=== PATIENT | female | born 1970 | race Caucasian/White ===

== ENCOUNTER 2016-12-10 05:37 | Inpatient (IN) | payer OTHER ==
[~2016-12-10] VITALS: Ht 165.1 cm; Wt 82.0 kg
[2016-12-10] VITALS (19 sets, daily range): BP systolic 105–146; BP diastolic 54–65; PULSE 65–91; RESP 10–18; O2SAT 95–100
[2016-12-10] MEDS: Lactated Ringer's 1,000 ML IV SCH ×3 (05:00→08:17)
[~2016-12-10 05:37] MED LIST: ACET325T51 PO; ALBU8.5H2 INHALATION; ALPR0.5T PO; CETI10CA PO; DOXY100C2 PO; EPINEPHrine 0.1 mg/mL 10 mL Syringe ONE; FLUT16SP NS; GUAI600T2 PO; IBUP200C PO; MIRENA IUD VAGINAL; MULT-1080 PO; SERT20OR6 PO; Sodium Bicarb (50 mEq) 8.4% 1 mEq/mL 50 mL Syringe ONE; benedryl PO
[2016-12-10] MEDS ORDERED: GENTAMICIN IRRIGATION ONE (06:00)
[2016-12-10] MEDS ORDERED: BACITRACIN IRRIGATION ONE (06:00)
[2016-12-10] MEDS ORDERED: CEFAZOLIN IRRIGATION ONE (06:00)
[2016-12-10] MEDS ORDERED: Heparin 5,000 Unit/mL Inj SUBQ ONE (06:00)
[2016-12-10] MEDS: CeFAZolin Inj 2 GM in IV Premix 1 EACH IV SCH ×2 (06:00→07:59)
[2016-12-10] MEDS ORDERED: [UNRECOGNIZED DRUG - OTHER] IRRIGATION ONE (06:00)
[2016-12-10] MEDS ORDERED: Neostigmine 1 mg/mL 10 mL Inj ONE ×2 (06:55→13:47)
[2016-12-10] MEDS ORDERED: Ondansetron 2 mg/mL 2 mL Inj ONE ×2 (06:55→13:47)
[2016-12-10] MEDS ORDERED: Glycopyrrolate 0.2 MG/ML 1mL Inj ONE ×2 (06:55→13:47)
[2016-12-10] MEDS ORDERED: Rocuronium 10 mg/mL 5 mL Inj ONE ×2 (06:55→13:47)
[2016-12-10] MEDS ORDERED: fentaNYL-PF 50 mCg/mL 2 mL Inj ONE (06:55)
[2016-12-10] MEDS ORDERED: Propofol 10,000 mCg/mL 20 mL Inj ONE ×2 (06:55→13:47)
[2016-12-10] MEDS ORDERED: HYDROmorphone 2 mg/mL Inj ONE (06:55)
[2016-12-10] MEDS ORDERED: Dexamethasone 4 mg/mL Inj ONE ×3 (06:55→13:47)
--- NOTE | 2016-12-10 07:28 | PCM.HPANE ---
Patient Data Surgeon Admitting Provider: Attending Provider:Erick Huang MD Primary Care Physician:Saskia Plaza MD Other Provider:Oanh Stinsoningham Anesthesia Reason for Visit Right Breast Cancer Ht/WT & BMI Height (Feet): 5 Height (Inches): 5.00 Weight (Kilograms): 76.3 Body Mass Index 28.00 Allergies Coded Allergies: No Known Allergies (Verified , 12/07/16) Past Anesthesia History Anesthesia History: Denies:: Abnormal Airway, Anesthesia Reactions, Difficult Intubation, Fam Anesthesia Reaction, Fam Malignant Hypertherm, Malignant Hyperthermia Diabetes History Hx Diabetes?: No MRSA MRSA: No Medications Home Meds Incl Beta Ramu: No Reported Medications [Mirena Iud] No Conflict Check Vaginal 20MCG/24H 12/07/16 Ibuprofen 200 Mg [id number] Mg PO QID PRN For Pain Ref 0 12/07/16 Sertraline HCl (Sertraline)20 Mg/1 Ml Oral.ojip210 Mg PO DAILY #1 BOTTLE Ref 0 12/07/16 [benedryl] No Conflict Check25 Mg PO QPM 12/07/16 Acetaminophen 325 Mg Nhwypj500 Mg PO Q4H PRN For Fever Ref 0 06/10/16 Cetirizine HCl (Zyrtec)10 Mg Fqflamq61 Mg PO HS #30 CAPSULE Ref 0 06/08/16 Alprazolam (Xanax)0.5 Mg Tablet0.5 Mg PO TID PRN For Anxiety Ref 0 used only when flying 06/08/16 Multivits,Ca,Minerals/Iron/FA (Women's Daily Formula Caplet)500-18-0.4 Tablet1 Each PO DAILY 06/08/16 Guaifenesin (Mucinex)600 Mg Tablet.er600 Mg PO DAILY PRN For Congestion 06/08/16 Fluticasone Propionate (Fluticasone Propionate Nasal)16 Gm [place].susp1 [place] NS DAILY #16 GM Ref 0 06/08/16 Doxycycline Hyclate 100 Mg Pifcape832 Mg PO PRN 06/08/16 Albuterol HFA (Proair HFA)8.5 Gm Hfa.aer.ad2 Puffs INHALATION Q4H PRN For Shortness of Breath #1 INHALER 06/08/16 Discontinued Reported Medications Baclofen 10 Mg Tablet5 Mg PO TID PRN For Pain Ref 0 5/4/17 History History of ENT Problems?: No HEENT History: Positive for:: Sinus Problem (SEASONAL ALLERGIES) TMJ (wears nightguard) Denies:: Abnormal Airway Cataracts Difficult Intubation Dysphagia Hearing Problem Denture Type: None Teeth Condition: Within Normal Limits Hx of Heart Problems?: No Cardiovascular History: Denies:: AICD Atrial Fibrillation Cardiac Surgery Chest Pain Congestive Heart Failure Edema Heart Murmur Hypertension Irregular Heartbeat Pacemaker Hx of Respiratory Problem?: Yes Respiratory History: Positive for:: Asthma Use of Inhalers / NEBS Denies:: COPD Emphysema Oxygen Administration Pneumonia Tuberculosis Use of C-PAP Machine Hx Neurologic Problems?: Yes Neurological History: Positive for:: Headaches Denies:: CVA Dementia Multiple Sclerosis Parkinson's Disease Seizures Hx of GI Problems?: Yes Other GI Pertinent History: S/P APPY Hx of Problems?: No Genitourinary History: Denies:: Kidney Stones Urinary Tract Infection Female Hx: Positive for:: Problems with Breasts? (S/P B/L BX'S/LUMPECTOMY RT BREAST CA=CURRENT PROBLEM) Denies:: Currently Skin History: Positive for:: History Skin Disorders? (ACNE) Denies:: Pressure Ulcers Hx Musculoskeletal Problems?: Yes Musculoskeletal History: Positive for:: Back Injury (C/OF NECK & SHOULDER PAIN CURRENTLY) Musculoskeletal Trauma (S/P RT SHOULDER RPR) Denies:: Joint Replacement Systemic Lupus Hx of Psycho/Social Problems?: No Psycho Social History: Denies:: Anxiety Hx Depression Hx Surgeries?: Yes (LT SALPING-OOPH,B/L BREAST BX/LUMPECTOMIES,RT SHOULDER RPR, APPY,L4-5 LAMI) Hx Any Other Health Problems?: Yes Other History: Positive for:: Cancer (RT BREAST CA) Denies:: Endocrine Disease Hospitalization Thyroid Disease History Blood Transfusions: Denies:: Blood Transfusions Hx Diabetes: No Hx Alcohol Use: No (QUIT 2010)Hx Substance Use: No Smoking Status: Former Smoker Have You Smoked inLast 12 mo: No Stop/Bang S-Snoring: Do You Snore Loudly: No T-Tired: feel tired, fatigued: Yes O-Obsered: Observed not breath: No P-Blood Pressure: treated: No B- Body Mass Index > 35 kg/m2: No A- Age over 50: No N- Neck Large Circumference: No G- Gender Male: No BUDDY Total Score: 1 BUDDY Risk Assessment: Low Risk, <3 Yes Risk Assessment Category Category 1A: Patient has history of documented sleep apnea, and HAS NOT received any narcotic, sedative or anesthesia administration during this stay. Category 1B: Patient has history of documented sleep apnea, and HAS received any narcotic , sedative or anesthesia administration during this stay Category 2: Patient has SUSPECTED Obstructive Sleep Apnea, and HAS received any narcotic , sedative or anesthesia administration during this stay. Category 3: Patient has SUSPECTED Obstructive Sleep Apnea and HAS NOT received narcotic, sedative or anesthesia administration during this stay. Category 4: Outpatient in Procedural Areas with known sleep apnea or who screen positive for High Risk via the STOP/BANG questionnaire. Exam Exam Vital Signs Vital Signs Date Time Temp Pulse Resp B/P Pulse Ox O2 Delivery O2 Flow Rate FiO2 12/10/16 06:06 36.5 72 18 105/60 98 Room Air General Appearance: Alert, Oriented X3, Cooperative, No Acute Distress HEENT/AIRWAY: MP 1 Lungs: Clear to Auscultation, Normal Air Movement Heart: Exam Unremarkable, Regular Rate/Rhythm, No Murmurs/Rubs/Gallops Meds/Labs/Diagnostics Admission Meds Current Medications Lactated Ringer's (Lr) 1,000 ml @ 120 mls/hr Q8H20M IV Last administered on t 05:43; Start 12/10/16 at 05:00; Stop 12/10/16 at 13:19 Plan Impression Patient chart reviewed, patient interviewed and anesthestic plan with risks, benefits, and alternatives discussed, and informed consent obtained. NPO per Anesth. Guidelines: Yes ASA Physical Status: ASA2 Mod Systemic Disease Anesthetic Plan: GA Bene/Risks/Altern/Consents: Yes HP Complete Prior to Induction: Yes Toney Dalal MD December 10, 2016 07:28
[2016-12-10] MEDS ORDERED: HEPARIN IV ONE (07:31)
[2016-12-10] MEDS ORDERED: SODIUM CHLORIDE 0.9% IV ONE (07:31)
[2016-12-10] MEDS ORDERED: SODIUM CHLORIDE 0.9% IRRIGATION ONE (07:50)
[2016-12-10] MEDS ORDERED: HEPARIN IRRIGATION ONE (07:50)
[2016-12-10] MEDS ORDERED: Lactated Ringer's 1,000 ML IV ONE ×5 (09:00→15:55)
--- NOTE | 2016-12-10 09:44 | DRSVH ---
PROCEDURE: NM SENTINEL NODE INJECTION ONLY, RIGHT BREAST RADIOPHARMACEUTICAL: 0.5 mCi Millipore filtered Tc-99m sulfur colloid. INDICATIONS: RIGHT BREAST CANCER. PROCEDURE: The indications, alternatives, benefits, risks, and complications of the procedure were explained to the patient. Written informed consent was obtained and placed in the chart. The area around the nip ple was prepped and draped in a sterile fashion. Tc-99m sulfur colloid was injected in the outer edg e of the areola in the right breast. No image was obtained. IMPRESSION: Administration of radiotracer into the right breast periareolar region for intra-operati ve sentinel lymph node localization. Dictated by: Mars Orosco M.D. on 12/10/2016 at 9:42 Approved by: Mars Orosco M.D. on 12/10/2016 at 9:43
[2016-12-10] MEDS ORDERED: Dexamethasone 4 mg/mL Inj IVPUSH PRN (09:50)
[2016-12-10] MEDS ORDERED: Ondansetron 2 mg/mL 2 mL Inj IVPUSH PRN (09:50)
[2016-12-10] MEDS ORDERED: Atropine 0.4 mg/mL Inj IVPUSH PRN (09:50)
[2016-12-10] MEDS ORDERED: MetoCLOpramide 5 mg/mL 2 mL Inj IVPUSH PRN ×2 (09:50→20:00)
[2016-12-10] MEDS ORDERED: Labetalol 5 mg/mL 4 mL Inj IV PRN (09:50)
[2016-12-10] MEDS ORDERED: Phenylephrine 10,000 mCg/mL Inj IVPUSH PRN (09:50)
[2016-12-10] MEDS ORDERED: Lactated Ringer's 1,000 ML IV SCH (09:50)
[2016-12-10] MEDS ORDERED: Lactated Ringer's 500 ML IV PRN (09:50)
[2016-12-10] MEDS ORDERED: EPHEDrine Sulfate 50 mg/mL Inj IVPUSH PRN (09:50)
[2016-12-10] MEDS ORDERED: Papaverine 30 mg/mL 2 mL Inj IV ONE (10:42)
--- NOTE | 2016-12-10 12:09 | PCM.SURGOP ---
Surgical Operative Report Date of Service: December 10, 2016 Pre Operative Diagnosis Right breast cancer, left breast deformity Post Operative Diagnosis Same Procedure: Bilateral skin sparing mastectomy, right axillary sentinel lymph node biopsy Surgeon and Batch Tester: Surgeon: Erick Huang MD Assistants: Osvaldo Abreu PA-C Indication for Procedure 46-year-old woman who has undergone 2 prior excisions for atypical ductal hyperplasia, and had a significant contour abnormality of the left medial breast inferiorly. She was then diagnosed with right breast invasive ductal carcinoma, ER/OH positive, HER-2 negative, with a 1 cm mass in the right breast 12:00 retroareolar region, 1 cm from the nipple. Because of her young age, 2 prior episodes of atypical ductal hyperplasia, and contour abnormality of the left breast, she desired to undergo bilateral mastectomy with immediate reconstruction. She was recommended to undergo abdominal tissue transfer. After discussion of risks and benefits, she agreed to proceed with bilateral skin sparing mastectomy and right axillary sentinel lymph node biopsy. Findings: There was a single right axillary sentinel lymph node, with an ex vivo gamma count of 512. The background count in the right axilla was 1. Procedure Details Preoperatively, the patient underwent right breast. All her injection for sentinel node identification. She was brought to the operating room where she underwent smooth induction of general endotracheal anesthesia. A Blakely catheter was placed. A left radial arterial catheter was placed. She was placed in the supine position with both arms out, and was prepped and draped in wide sterile fashion. A procedural pause was performed according to the SCOAP checklist, and all were found to be in agreement. Left skin sparing mastectomy was performed first. A circumareolar incision was made with a vertical inferior extension to the inframammary fold. Skin flaps were raised circumferentially. Circumferential dissection was carried out with electrocautery, elevating the skin and subcutaneous tissue off the underlying breast parenchyma. Margins of dissection were the left clavicle, the midline, the left inframammary crease, and the left anterior axillary line. Medially, there was a very large perforating vessel inferiorly which was initially partially controlled with hemoclips, and ultimately controlled with a 3-0 silk suture ligature. There were multiple other perforating vessels along the lateral border of the pectoralis muscle which were controlled with clips. There was significant scar tissue as well as some old clips in the region of her prior excision in the lower inner quadrant. The left breast was then elevated off the underlying chest wall, and pectoralis fascia was resected en bloc. The axillary tail was divided. Again, there were several large vessels in the axillary tail which were controlled with medium clips. The left breast was oriented with suture, and passed off the field for permanent pathology. Hemostasis was adequate. A moist sponge was placed in the mastectomy space. Right skin sparing mastectomy was performed next, through a similar circumareolar incision with a vertical inferior extension to the inframammary crease. Skin flaps were raised circumferentially. Using electrocautery, the skin and subcutaneous tissue was elevated off the underlying breast parenchyma. Margins of dissection were the right clavicle, the midline, the right inframammary crease, and the right anterior axillary line. Perforating vessels on this side were significantly smaller. There was a superior directional survey drafter which was controlled with medium hemoclips. Several lateral perforators were controlled with medium hemoclips. The right breast was then elevated off the underlying chest wall, and pectoralis fascia was resected en bloc. The right axillary tail was divided, and the right breast was oriented with suture, and passed off the field for permanent pathology. Right axillary sentinel lymph node biopsy was performed through the same incision. The axillary fascia was incised. Using the gamma probe as a guide, the area of maximum radiotracer activity was identified and dissected free from the surrounding tissues. There was a single lymph node which was partially transected inadvertently, that was dissected free. Ex vivo, the gamma count was 512. The background count in the right axilla was 1. That lymph node was sent for permanent pathology, labeled as right axillary sentinel lymph node. There is a small amount of residual subcutaneous tissue under the superior skin flap, so additional dissection was performed sharply with Metzenbaum scissors. The tissue was oriented with suture , and sent for permanent pathology labeled as right subcutaneous tissue. Hemostasis was adequate. A moist sponge was placed in the right mastectomy space. The remainder of the operation was performed by Dr. Lowell Anaya. Please see his dictated operative report regarding abdominal tissue harvest, transfer, and skin closure. At the end of the case all needle and sponge counts were correct 2. The patient was awakened from anesthesia without difficulty, and taken to the recovery room in satisfactory condition, having tolerated the procedure well. Complications There were no periprocedural complications identified. Surgical Specimen Removed: Yes Specimen sent to Pathology: Yes Surgical Specimen description: Left breast. Right breast. Right axillary sentinel lymph node. Right subcutaneous tissue. Anesthetic Plan: GA Grafts, Implants: None Output, Estimated Blood Loss: 100 Blood Administration during lynch: No Drains: EDD Drain #1, EDD Drain #2, EDD Drain #3, EDD Drain #4 Catheters: Urethral 2 Way Blakely copies to: Saskia Plaza MD; Kiko Valentine Joshua D MD December 10, 2016 12:09
[2016-12-10] MEDS ORDERED: Bupivacaine Liposome 1.3% 20 mL Inj ONE (12:54)
--- NOTE | 2016-12-10 17:48 | PCM.ANEP1 ---
Post Anesthesia PACU Phase 1 Assessment Anesthetic Administered: GA Level of Alertness: Sleepy, easy to arouse DEVINE's with Equal Strength: Yes Pain: No Nausea or Vomiting: No CV Function and Hydration: Yes Airway Device: Endotrachial Tube Oxygen Delivery: Simple Mask Lungs: Clear to Auscultation, Normal Air Movement Dermatome Level: Full Sensation PACU Phase 2 Assessment Complications: No Follow up Care: N/A Patient Instructions Provided: Yes Toney Dalal MD December 10, 2016 17:48
[2016-12-10] MEDS: fentaNYL-PF 50 mCg/mL 2 mL Inj IVPUSH PRN ×3 (17:53→18:20)
[2016-12-10] MEDS: HYDROmorphone 1 mg/mL Inj IVPUSH PRN ×3 (18:33→19:15)
[2016-12-10] MEDS ORDERED: Magnesium Hydroxide 10 mL Oral Concentration PO PRN (19:55)
[2016-12-10] MEDS ORDERED: diphenhydrAMINE 25 mg Capsule PO PRN (20:00)
[2016-12-10] MEDS ORDERED: Albuterol 2.5 mg/3 mL Inhalation Solution NEB PRN (20:15)
[2016-12-10] MEDS ORDERED: HYDROmorphone 1 mg/mL Inj IVPUSH PRN (20:20)
[2016-12-10] MEDS: HYDROmorphone PCA 0.2 mg/mL 30 mL Inj - Standard IV PRN (20:33)
[2016-12-10] MEDS: POTASSIUM CHLORIDE IV SCH (21:00)
[2016-12-10] MEDS: DEXTROSE 5% IV SCH (21:00)
[2016-12-10] MEDS: LACTATED RINGER S IV SCH (21:00)
[2016-12-11] VITALS (10 sets, daily range): BP systolic 88–110; BP diastolic 46–53; PULSE 76–88; RESP 11–25; O2SAT 96–99
[2016-12-11 03:14] LABS: Mean Corpuscular Hemoglobin 32.2 pg (27.0-35.0); Mean Corpuscular Volume 93.7 fL (81-100)
[2016-12-11] MEDS: LACTATED RINGER S IV SCH ×4 (03:47→23:50)
[2016-12-11] MEDS: POTASSIUM CHLORIDE IV SCH ×4 (03:47→23:50)
[2016-12-11] MEDS: DEXTROSE 5% IV SCH ×4 (03:47→23:50)
--- NOTE | 2016-12-11 06:12 | NUR ---
P) CCU Admit Pt. admitted to CCU last night at approx. 1920 from PACU, on 2L O2 via N/C, cardiac rhythm sinus with occasional PVC's, BP low, especially when dozing, generally with systolic in the 90's and diastolic i the 40's. Breath sounds decreased bilat. extent may be due to difficulty hearing through the binder, Pt. practicing coughing and deep breathing, given a pillow for splinting. Only c/o pain is in breasts, no abdominal pain except with moving about in bed, in semi-marshall position all night but self shifting weight on bottom. Dopplers in breast checked hourly along with appearance and skin tension and graft color, breasts remain soft, grafts flesh color and warm, good dopplered pulses bilat. Abdominal binder over ABD dressing, no bleeding on dressing, EDD's putting out a moderate amount of drainage 35-60ml. each over shift. Pt. drowsy and frequently dozing but wakes easily and is alert and oriented x3. I) Continue close monitoring. E) Resting quietly after performing her personal facial care independently.
[2016-12-11] MEDS: Heparin 5,000 Unit/mL Inj SUBQ SCH ×4 (08:16→23:49)
[2016-12-11] MEDS: Fluticasone 0.05% 15 Spray/2 Gm 16 Gm Nasal Spray NASAL SCH (08:16)
[2016-12-11] MEDS: CeFAZolin 1 Gm/50 mL D5W IV Premix IV SCH ×4 (08:17→23:50)
[2016-12-11] MEDS ORDERED: HYDROmorphone 0.5 mg/0.5 mL iSecure Syringe IVPUSH PRN (09:10)
[2016-12-11] MEDS: HYDROmorphone PCA 0.2 mg/mL 30 mL Inj - Standard IV PRN (15:41)
--- NOTE | 2016-12-11 15:43 | NUR ---
Social Work: Screen D: Per EMR review, pt is a 46 year old female admitted for Right Breast Cancer. Pt is [employer]. PCP is Saskia Plaza MD. NOK is pt's mother, Katie Pendleton. Advanced directives not completed at this time. Readmit score is low, 2/8. CONNIE SCRATCHER attempted to meet with patient at bedside to provide AD info and discuss discharge planning. The requested CONNIE SCRATCHER return at a later time. CONNIE SCRATCHER agreed. A: Pt who is from [place]. P: CONNIE SCRATCHER to return to provide AD info and complete discharge planning. GABE Smith
--- NOTE | 2016-12-11 18:45 | NUR ---
Activity- was helped up to a sitting and then standing position at the bedside. Patient tolerated the activity fairly well but after about 3min of standing stated that her legs were getting to be too wobbly and had to sit down. Patient asked that the Blakely cath not be removed as discussed with MD because she did not believe she can get up to a bedside commode well even with assist and did not want to use a bedpan- DM aware. Patient was encouraged to stand up at the bed side with assist again this afternoon and tolerated the activity total for about 10min. she was able to march in place but had to sit down once to rest. Blakely catheter and SUPERVISOR ROUGH END remained in placed- MD was made aware- patient to be reevaluated in am. Pain- well controlled with SUPERVISOR ROUGH END Dilaudid- patient did not required any boluses of pain med. Shift total for SUPERVISOR ROUGH END was 3.7mg. Grafts/surgical sites- Doppler checks q1h through the shift- no changes in sound quality was noted. Bilateral breast grafts/flaps remained unchanged in color, turgor, capillary refill and warmth and remained equal or close in those campsites to the surrounding tissues. No increase swelling or derange was noted. EDD drains 1 through 4 remained patent and with 30-60ml serum-sanguineous output per drain in 12h shift.
--- NOTE | 2016-12-11 21:06 | PROG NOTE ---
[address] [address] PROGRESS NOTE PATIENT: CHUCK HERRERA : 1970 MR#: [id number] ADMIT: 12/10/2016 JOB ID: [id number] DATE: 12/11/2016 PLASTIC SURGERY INPATIENT PROGRESS NOTE: Postoperative day one, status post bilateral mastectomies, right sentinel lymph node biopsy, and reconstruction with abdominal based free tissue transfer. EVENTS OVER THE LAST 24 HOURS: No acute events overnight. The patient did have some relative hypotension per nursing but this was transient. SUBJECTIVE: The patient has very little abdominal pain and reports most of her discomfort is at the chest surgical site. OBJECTIVE: Vital signs: Temperature is 37 degrees centigrade, blood pressure is 90/46, pulse is 84, respirations are 18. Oxygen saturation is 98% on 2 L nasal cannula. General: Alert and oriented, no acute distress. Pulmonary: Lungs are clear auscultation bilaterally. Cardiovascular: Regular rate and rhythm. Abdomen: All incisions are well approximated with no erythema or fluctuance. Dressings are dry. Drain output is serosanguineous. Chest: Again, all incisions are intact. The flap tissue is soft and appears warm and well perfused with normal capillary refill. Venous signals are present and augment with deep respiration, cough and gentle pressure bilaterally. ASSESSMENT AND PLAN: Stable postoperative day one. 1. Will start patient on diet today. 2. Continue CELL REPAIRER with pain management with continuation of Toradol and acetaminophen. Transition to oral pain medications if she tolerates later today. 3. Cough, deep breathing, and incentive spirometry 10 times q.1 h. 4. Lab was reviewed which showed expected drop in hemoglobin and hematocrit in the postsurgical setting. No signs of ongoing bleeding. 5. Will attempt to discontinue Blakely today. 6. Continue flap checks q.2 h. 7. Continue IV fluids. 8. Will be able to discharge to [facility] step-down unit later today if stable.
[2016-12-12] VITALS (8 sets, daily range): BP systolic 93–111; BP diastolic 48–52; PULSE 85–99; RESP 12–18; O2SAT 94–98
[2016-12-12] MEDS: LACTATED RINGER S IV SCH ×3 (06:12→22:47)
[2016-12-12] MEDS: DEXTROSE 5% IV SCH ×3 (06:12→22:47)
[2016-12-12] MEDS: POTASSIUM CHLORIDE IV SCH ×3 (06:12→22:47)
--- NOTE | 2016-12-12 06:34 | NUR ---
Hypotension/ Doppler Pulses / Pain / Tele Pt has been Hypotensive with SBPs in the 90s to low 100s per ART Line. Breast pulses audible with internal Doppler Q2 hours, with no significant changes all night. Manual Doppler checks of nipple area pulses are also audible. Breasts are warm to the touch, right side slightly cooler than left. Pt c/o breast pain 01/01, Pt using LOG SORTING SUPERVISOR Dilaudid for a total of 5mg this shift. IV Toradol 30mg given during the night per MD orders. Pt also received one dose of PO Tylenol during the night. Pain tolerable now at 11/01. Tele SR with HR 60-90s with rare PVCs, per Centralized Traffic Control Operator. Pt stood at bedside for AM standing scale weight of 82 kgs. Support bra on and abdominal binder on and intact. EDD drains patent, putting out sero-sanguineous drainage.
--- NOTE | 2016-12-12 07:01 | OP ---
[address] [address] OPERATIVE REPORT PATIENT: CHUCK HERRERA : 1970 MR#: [id number] ADMIT: 12/10/2016 JOB ID: [id number] DATE OF SURGERY: 12/11/2016 PLASTIC SURGERY OPERATIVE REPORT: PREOPERATIVE DIAGNOSIS(ES): 1. Right breast cancer. 2. Encounter for breast reconstruction. POSTOPERATIVE DIAGNOSIS(ES): 1. Right breast cancer. 2. Encounter for breast reconstruction. PROCEDURES PERFORMED: 1. Bilateral skin-sparing mastectomies with right sentinel lymph node biopsy (Dr. Erick Huang). 2. Immediate bilateral breast reconstruction with abdominal based free tissue transfer (Dr. Lowell Anaya and Adalberto Swanson MD). SURGEON: 1. Erick Huang MD. 2. Lowell Anaya MD. 3. Adalberto Swanson MD. ANESTHESIA: General anesthesia with endotracheal airway. ANESTHESIA PROVIDER: Toney Dalal MD. INDICATIONS: This is a pleasant, 46-year-old female with a recent diagnosis of right breast cancer. She plans on undergoing bilateral mastectomies with immediate autologous tissue reconstruction. FINDINGS: Conventional anatomy. There was a type 2 DIEA on the right and a type 1 DIEA on the left. COMPLICATIONS: None. ESTIMATED BLOOD LOSS: 275 cc. SPECIMENS: None for our portion of the procedure. DRAINS: Four 15 -Kenyan round hubless channel drains were placed during the operation. One was placed in each breast dissection pocket and two were placed in the abdominal subcutaneous space. IMPLANTS: Three separate flow couplers (Synovis) were used throughout the case. A single 3.0 mm mailer apprentice was used on the right and a 3 mm and a 2.5 mm flow mailer apprentice were used on the left. ANTIBIOTICS: The patient was given parenteral antibiotics prior to surgery according to protocol and as dosed at regular intervals throughout. FLUIDS: 8 L crystalloid URINE OUTPUT: 475 cc. INFORMED CONSENT: I had a thorough discussion with the patient prior to surgery regarding the risks, benefits, and alternatives to the procedure. In terms of risks, I specifically discussed bleeding, infection, damage to adjacent structures, need for further procedure, scar, pain, undesired cosmesis, heart attack, stroke, or . Despite these risks, she agreed to proceed as planned and signed written surgical consent indicating as much. She also understood the additional risks of partial or complete flap loss, abdominal bulge, and/or hernia. DESCRIPTION OF PROCEDURE: After informed consent was obtained and verified, the patient was brought to the operating theater and positioned supine upon the operating table. She then had induction of general anesthesia and placement of an endotracheal airway. Heparin had been given subcutaneously prior to induction and sequential compression devices had been in place and functioning prior to induction as well. All bony prominences were assessed to make sure they were well-padded. A left radial arterial monitoring line and an indwelling urinary catheter were also placed. The bilateral upper extremities, chest and abdomen were then prepped and draped in standard sterile surgical fashion using a ChloraPrep solution. Preoperative verification and checklist was then done according to protocol. Dr. Huang then proceeded with the bilateral skin-sparing mastectomies and right sentinel lymph node biopsy and this will be dictated by him in a note under separate cover. Concomitantly, I began the abdominal flap dissection. Markings had been made corresponding to the planned area of resection. Incision was made with a #10 scalpel through the skin and into the subcutaneous tissues. A superior abdominal flap was elevated in a supramuscular plane at the level of the xiphoid in the midline and the costal margins laterally. Inferiorly, dissection was done down to the anterior abdominal wall, being careful to look for the superficial inferior epigastric veins bilaterally. There were no veins isolated. However, the right-sided superficial inferior epigastric nerve was preserved for a length of 4 cm. The flap was also divided in the midline down to the level of the anterior abdominal wall. A 3-0 silk traction suture was placed at the 6 and 12 o'clock positions of the umbilicus and an incision was made around the umbilical margin with a #11 scalpel. Dissection was done along the umbilical stalk, keeping a generous amount of soft tissue along the stalk to preserve perfusion. I began with the right-sided flap, dissecting from first a lateral to medial and then a medial to lateral direction in a suprafascial plane. There was a single dominant and several small perforators within the lateral as well as a larger mid row records management engineer. These were isolated and the smaller medial row perforators were divided. A small fascial island was incised around the perforators to protect them. Dissection was done of the perforators, including a small island of muscle surrounding the two larger perforators given that they were not within the same vertical septum. Dissection was done down to the source of pedicle which was further dissected down into the pelvis. The artery and two vena comitans were then isolated and the flap was stapled in situ. Dissection for the left madiha abdominal flap was then began in similar fashion. With this flap there were two medial row dominant perforators which were isolated. Again, fascial island was incised around the perforators to protect them and dissection was done underneath the rectus muscle to isolate the course of the perforators down to the source vessel. The more superior dominant records management engineer was a true septocutaneous records management engineer; however, the inferior dominant records management engineer was approximately 1.5 cm lateral to this and the muscle between these two perforators was divided. Dissection was done along the deep inferior epigastric pedicle, noting that there was a single artery and a single vein. Once Dr. Huang had finished the bilateral mastectomies, Dr. Swanson began with isolation of the internal mammary artery and vein bilaterally. Dissection was done in similar fashion on both sides. First the third rib was identified and the pectoralis major muscle overlying the medial costochondral segment was identified and divided in direction of its fibers. Once the anterior aspect of the rib was isolated, a small "H" shaped incision was made over the rib perichondrium and superior inferior perichondrial flaps were elevated. The cartilaginous segment was removed with a large double-action rongeur. The posterior perichondrium was then carefully incised and vessel preparation was done by dissecting the vessels off of the undersurface of the posterior perichondrium. Once this was done, all intervening soft tissue and perichondrium was removed to provide an adequate optical window for isolation of the vessels. The vessels were then isolated along their length from the inferior aspect of the rib above to the superior aspect of the rib below. There was a single internal mammary artery and vein at this level bilaterally. The left-sided internal mammary vein was clamped proximally and divided distally allowing only for antegrade anastomosis. The internal mammary artery on the left was also clamped proximally and divided distally in similar fashion. On the right side, the internal mammary vein was clamped both proximally and distally to allow for antegrade and retrograde anastomosis. There had been a small venotomy on the left internal mammary vein which precluded dual anastomosis. The artery was also clamped and divided distally. We began with transfer of the left madiha-abdominal flap to the right chest, stapling it provisionally to the chest. Flap vessel preparation was done with judicious removal of adventitia and separation of the vessels. A single, 3 mm flow mailer apprentice was used to anastomose the veins without difficulty and the arterial anastomosis was done using 9-0 nylon in a simple interrupted fashion. Once the clamps were released, a single additional suture was placed to stop minor bleeding at the arterial anastomosis. Sounds of the implantable venous Doppler corresponded with clinical exam. The right madiha abdominal flap was then transferred to the left chest in similar fashion and stapled provisionally. Preparation of the vessels was done in similar fashion. The antegrade venous anastomosis was done with a 3 mm mailer apprentice followed by anastomosis of the second (smaller) vena comitans to the retrograde internal mammary vein with a 2.5 mm mailer apprentice. The artery was handsewn with 9-0 in similar fashion. Once the clamps were removed and additional suture was also placed in similar fashion to stop the small amount of bleeding at the arterial anastomosis. Again, both implantable venous Dopplers showed excellent flow and corresponded with the clinical exam it. The flaps were then de-epithelialized according to the expected pattern and placed within their respective pockets. Two 15-Kenyan round hubless channel drains were placed via trocar technique and secured to the skin using a 3-0 nylon drain suture. The final flap inset was accomplished using 3-0 Vicryl in an interrupted deep dermal fashion and 3-0 Stratafix in a running intradermal fashion. I then set about closure of the abdomen. The abdomen was irrigated with a triple antibiotic solution. Hemostasis was achieved using monopolar cautery. Exparel (liposomal bupivacaine) was then diluted 1:1 with saline and infiltrated into the rectus sheath, rectus muscles and along the incision using a 25-gauge 1-1/4-inch needle. 15-Kenyan round channel drains were placed via trocar technique exiting the inferolateral skin below the incision and secured to the skin using 3-0 nylon drain sutures. Closure of the rectus fascia was then done using 0 Prolene placed in a buried [id number] fashion in a simple running fashion. The umbilicus was loosely plicated to the abdominal wall using 3-0 Vicryl sutures. The patient was then placed in the reflex position and the superior abdominal flap was approximated to the inferior abdominal flap without difficulty. The new position for the umbilicus was marked in the midline. Closure of the transverse abdominal incision was done with 0 PDS placed in a simple fashion to approximate Abimael's fascia, followed by closure of the skin with 3-0 Vicryl in the deep dermis, and 3-0 Stratafix in a running intradermal fashion. A #15 scalpel was used to make the new orifice for the umbilicus. It was incised and a small core of subjacent fat was removed using cautery. The umbilicus was easily delivered using the silk traction sutures and secured in place using 3-0 Vicryl in the deep dermis and 5-0 fast gut to approximate the skin. All incisions were then dressed with Dermabond topical skin adhesive and Steri-Strips followed by gauze padding. An abdominal binder was also placed as well as a postoperative bra. The patient tolerated the procedure well. No complications were noted. Sponge, needle, and instrument counts were correct at the end of the case. Postoperative debriefing was done according to protocol. The patient was successfully extubated and taken to the postanesthesia recovery area with normal and stable vital signs. PLAN: The patient will be admitted to the ICU overnight for flap monitoring. Addendum: For the purposes of billing, Dr. Swanson served as an web assistant for the reconstructive portion of the case. He was present throughout the reconstructive portion of the procedure in its entirety and his presence was necessary for accomplishment of operative tasks relating to reconstruction. KEY
[2016-12-12] MEDS: CeFAZolin 1 Gm/50 mL D5W IV Premix IV SCH ×2 (07:53→16:30)
[2016-12-12] MEDS: Heparin 5,000 Unit/mL Inj SUBQ SCH ×2 (07:55→16:42)
[2016-12-12] MEDS: Ondansetron 2 mg/mL 2 mL Inj IVPUSH PRN (08:10)
[2016-12-12] MEDS: Fluticasone 0.05% 15 Spray/2 Gm 16 Gm Nasal Spray NASAL SCH (09:05)
--- NOTE | 2016-12-12 18:20 | NUR ---
Pain/Activity.. Pt has had nagging headaches and has received alternating tylenol and Motrin with fair relief given. 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 Anum wright'd at 1200. Is now ambulating to Bathroom with one assist and has been up in the chair for all meals. All doppler signals checked q 2 hr and are present. EDD's draining serosang output.
[2016-12-13] MEDS: Heparin 5,000 Unit/mL Inj SUBQ SCH ×2 (00:07→08:30)
[2016-12-13 00:08] VITALS: BP 96/38; PULSE 80; RESP 14; O2SAT 96
[2016-12-13] MEDS: CeFAZolin 1 Gm/50 mL D5W IV Premix IV SCH ×2 (00:08→08:30)
[2016-12-13] MEDS: DEXTROSE 5% IV SCH ×2 (00:10→08:56)
[2016-12-13] MEDS: POTASSIUM CHLORIDE IV SCH ×2 (00:10→08:56)
[2016-12-13] MEDS: LACTATED RINGER S IV SCH ×2 (00:10→08:56)
[2016-12-13] MEDS: Ondansetron 2 mg/mL 2 mL Inj IVPUSH PRN (02:53)
[2016-12-13 03:00] VITALS: BP 98/38; PULSE 84; RESP 12; O2SAT 96
--- NOTE | 2016-12-13 06:40 | NUR ---
Hypotension / Breast Doppler / Pain Pt has been hypotensive tonight with SBPs in the 90s and BP MAPS of 57, 58, and 65 overnight. Bilateral internal Doppler checks every 2 hours during the night, along with manual Doppler of nipple area , with good sound and blood flow. Breast flaps are warm to the touch, with good color and sensation. Pt remained afebrile all night. Pt taking PO Dilaudid for pain control about every 3 hours with good relief. Pt up to bathroom with SBA , gait steady. EDD drains X 4 patent.
[2016-12-13 07:55] VITALS: BP 93/49; PULSE 77; RESP 16; O2SAT 95
[2016-12-13] MEDS: Fluticasone 0.05% 15 Spray/2 Gm 16 Gm Nasal Spray NASAL SCH (08:30)
[2016-12-13] MEDS ORDERED: SERT20OR6 PO (10:23)
[2016-12-13] MEDS ORDERED: SERT100T9 PO (10:24)
--- NOTE | 2016-12-13 11:53 | NUR ---
Social Work Note: Discharge Data& Assessment: Per pt is medically ready to discharge. SW met with pt and pt family at bedside to check in and assess for any unmet needs. Radha Pendleton is a 46 year old female admitted on 12/10/2016 for right breast cancer. Per pt is medically stable and ready to discharge. Pt still has drain placed, and will discharge with these. Per RN, pt is able to ambulating at baseline, and the drains in place is what has been slowing her down. Pt confirmed she is ambulating at baseline and pt declined any other additional resources. SW discussed DPOA/Advance Directive paperwork, pt declined taking this information home. Pt denies any other needs. Pt family transporting her home today. No other discharge needs identified. Plan: Per pt is medically ready to discharge home via POV. Pt denies any other needs. Pt family transporting her home today. No other discharge needs identified. GABE Sherman
--- NOTE | 2016-12-13 12:20 | NUR ---
DISCHARGE Dr. Anaya came this morning to remove internal doppler devices, and placed order for patient to discharge home w/ family. Vitals stable, no telemetry. IVs removed from L hand and wrist, tips intact. Educational materials printed regarding mastectomy, breast reconstruction and new medications: Dilaudid, Ibuprofen and Zofran. Discussed incision care and drain care w/ patient, she understands and watched me change her drain dressings, understands which supplies to use and how to change the dressing if needed. Advised patient on s/s of infection and bleeding to which she states understanding. Demonstrated how to empty drains, patient able to demonstrate back accurately. Both Dr. Huang and Dr. Anaya office numbers made available to patient, and she understands to call if any issues arise. Follow up appointments given to patient and her . All belongings collected. Patient is transported from unit via wheelchair at 1215 by RN.
--- NOTE | 2016-12-13 15:48 | PATH ---
SURGICAL PATHOLOGY Attending Physician:Michelle Quesada CASE STATUS: Signed Out PATIENT NAME: CHUCK HERRERA PID: [id number] : 1970 DATE COLLECTED:12/10/2016 23:07 SPECIMEN: 1: Breast, Simple Mastectomy (w/o lymph nodes) 2: Breast, Simple Mastectomy (lymph nodes submitted separately) 3: [place] Lymph Node 4: Breast, Biopsy - Excisional CLINICAL HISTORY: RIGHT BREAST CANCER 1). LEFT BREAST, SHORT STITCH SUPERIOR, LONG STITCH LATERAL 2). RIGHT BREAST, SHORT STITCH SUPERIOR, LONG LATERAL 3). RIGHT AXILLARY SENTINEL LYMPH NODE 4). RIGHT SUBCUTANEOUS TISSUE, SHORT STITCH SUPERIOR, LONG STITCH LATERAL FINAL DIAGNOSIS: 1.LEFT BREAST SIMPLE MASTECTOMY SPECIMEN: NEGATIVE FOR MALIGNANCY AND SIGNIFICANT ATYPIA. 2.RIGHT BREAST SIMPLE MASTECTOMY SPECIMEN: INFILTRATING DUCTAL CARCINOMA (SEE CAP CANCER SUMMARY BELOW). 3.RIGHT AXILLARY SENTINEL LYMPH NODE: SINGLE LYMPH NODE POSITIVE FOR METASTATIC BREAST CARCINOMA (SEE CAP CANCER SUMMARY BELOW). 4.RIGHT SUBCUTANEOUS TISSUE: FATTY TISSUE NEGATIVE FOR MALIGNANCY. CAP CANCER CASE SUMMARY INVASIVE CARCINOMA OF THE BREAST: PROCEDURE: SIMPLE MASTECTOMY LYMPH NODE SAMPLING: SINGLE SENTINEL LYMPH NODE SPECIMEN LATERALITY: RIGHT TUMOR SITE: 12 O' CLOCK TUMOR SIZE: 2.5 X 1.7 X 1.4 CM HISTOLOGIC TYPE: INFILTRATING DUCTAL CARCINOMA HISTOLOGIC GRADE: VIOLETA HISTOLOGIC SCORE 6 OF 9 Glandular/Tubular differentiation: Score 3 OF 3 Nuclear Pleomorphism: Score 2 OF 3 Mitotic Rate: Score 1 OF 3 Overall Grade: Grade 2 OF 3 (INTERMEDIATE GRADE) TUMOR FOCALITY: SINGLE FOCUS DUCTAL CARCINOMA IN SITU: Size (Extent) of DCIS: MULTIPLE FOCI WITHIN THE TUMOR AND IMMEDIATELY ADJACENT TO THE TUMOR Architectural patterns: SOLID Nuclear grade: Grade INTERMEDIATE Necrosis: ABSENT MACROSCOPIC AND MICROSCOPIC EXTENT OF TUMOR SKIN: NEGATIVE NIPPLE: NEGATIVE SKELETAL MUSCLE: ABSENT MARGINS INVASIVE CARCINOMA: Anterior: 1.0 CM Posterior: 3.7 CM Superior: 11.1 CM Inferior: 10.3 CM Medial: 6.4 CM Lateral: 8.5 CM DUCTAL CARCINOMA IN SITU: ALL MARGINS GREATER THAN 1.0 CM LYMPH NODES Total number of lymph nodes examined: 1 Number of sentinel lymph nodes examined: 1 Lymph Node Involvement: Number of lymph nodes with macrometastases: 1 (TUMOR FOCUS 0.6 CM) Extranodal Extension: NEGATIVE Method of Evaluation of [place] Lymph Nodes: HISTOLOGIC SECTIONS LYMPH-VASCULAR INVASION: NEGATIVE DERMAL LYMPH-VASCULAR INVASION: PATHOLOGIC STAGING: AJCC, 7th ed., 2010 PRIMARY TUMOR: pT2 REGIONAL LYMPH NODES: pN1a (sn) ANCILLARY STUDIES: Biomarkers Performed Previously on Case: BIOMARKERS PERFORMED ON PREVIOUS BIOPSY (INFORMATION TAKEN FROM THE CURRENT SURGICAL OPERATIVE NOTE) Estrogen Receptor (ER) Status: POSITIVE Progesterone Receptor (PgR) Status: POSITIVE HER2 (by immunohistochemistry): NEGATIVE ICD10 code C50.111 GROSS DESCRIPTION: The specimens are received in formalin, labeled with the patient's name, and sublabeled as the following: (1) left breast; (2) right breast; (3) Rt axillary SLN; (4) right subcutaneous tissue. (1) The specimen consists of a left breast (5.4 cm AP, 22.0 cm SI, 17.2 cm ML) partially covered by the nipple/areola complex (6.0 x 4.1 cm). The axillary tail is absent. The specimen is oriented with 2 black sutures (short-superior, long-lateral). No localization wire is present. The breast tissue is fatty with no nodules, masses or lesions identified. The nipple/areola complex is tapia-white and unremarkable. Ink code: purple-anterior; yellow-posterior; black-superior; orange-inferior; green-medial; blue-lateral. Section code: (1A) nipple; (1B) skin; (1C, 1D) upper outer quadrant; (1E, 1F) lower outer quadrant; (1G, 1H) upper inner quadrant; (1I, 1J) lower inner quadrant. (2) The specimen consists of a right breast (4.6 cm AP, 17.2 cm SI, 16.3 cm ML) partially covered by the nipple/areola complex (5.8 x 3.8 cm). The axillary tail is absent. The specimen is oriented with 2 black sutures (short-superior, long-lateral). No localization wire is present. The breast tissue is fatty and contains a frank-white solid firm irregular mass (2.5 x 1.7 x 1.4 cm) directly deep to the nipple/areola complex. The mass is 1.5 cm from the skin surface, 1.0 from the anterior, 3.7 from the posterior, 11.1 from the superior, 10.3 from the inferior, 6.4 cm from the medial, and 8.5 cm from the lateral resection margins. No other nodules, masses or lesions are identified. The nipple/areola complex is tapia-white and unremarkable. Ink code: purple-anterior; yellow-posterior; black-superior; orange-inferior; green-medial; blue-lateral. Section code: (2A) nipple; (2B) skin; (2C, 2D) tissue lateral to mass, promotions representative; (2E, 2F-2I, 2J) mass, promotions representative, submitted LM; (2K-2N) tissue medial to mass, promotions representative. (3) The specimen consists of a lymph node (3.6 x 2.5 x 0.8 cm). Section code: (3A-3C) one lymph node, serially sectioned. Specimen entirely submitted. (4) The specimen consists of a piece of adipose tissue (1.0 cm AP, 6.5 cm SI, 5.1 cm ML) with no overlying skin. The specimen is oriented with 2 black sutures (short-superior, long-lateral). No localization wire is present. The tissue is fatty with no nodules, masses or lesions identified. Ink code: purple-anterior; yellow-posterior; black-superior; orange-inferior; green-medial; blue-lateral. Section code: (4A-4H) adipose tissue, serially sectioned and submitted SI. Specimen entirely submitted. Note: Approximate total fixation time in formalin for all specimens-55 hours using a collection date of December 10, 2016 with no collection time given. 12/12/16 JM MICRO DESCRIPTION: See diagnosis. ICD-9 CODES: CPT CODES: 1: 68881 2: 69359 3: 25025 4: 12667 Electronically Signed Out Isak Marsh MD [facility] [address], [place] [address] Technical component performed at [facility], [facility] [address], [place], [address]
--- NOTE | 2016-12-22 12:28 | PROG NOTE ---
[address] [address] PROGRESS NOTE PATIENT: CHUCK HERRERA : 1970 MR#: [id number] ADMIT: 12/10/2016 JOB ID: [id number] DATE: 12/12/2016 SUBJECTIVE: The patient is seen in followup. She is doing relatively well. She has been able to get up and use the bedside commode with minimal assistance. Her pain is well controlled. She is not having nausea. OBJECTIVE: Temperature 37.1, pulse 87, blood pressure 93/49, saturation 98% on 2 liters nasal cannula. General: She is resting in bed, sitting up, in no acute distress. Chest is clear. Heart: Regular rate and rhythm. No murmurs. Breasts: Her incisions are well approximated with no erythema. The transferred tissue is warm, with capillary refill of 2 seconds. The internal Doppler signals show viable biphasic Doppler signals. The EDD drains have serosanguineous output. There are no hematomas. LABORATORIES: White blood cell count 12.1, hemoglobin 9.2, hematocrit 26.8. ASSESSMENT AND PLAN: A 46-year-old woman, postoperative day two, status post bilateral skin sparing mastectomy with reconstruction with the abdominal tissue transfer, right axillary sentinel lymph node biopsy. She is doing well clinically. Her free flaps seem to have good perfusion. I suspect that the internal Dopplers can be discontinued soon, per the discretion of Dr. Anaya. I think she is likely 1-2 days away from being ready to be discharged from the hospital.
--- NOTE | 2016-12-22 15:09 | PCM.DC.SUR ---
Discharge Summary Date of Service: Date of Hospital Admission: December 10, 2016 at 19:37 Date of Operation(s): 12/10/2016 12/10/2016 Date of Discharge: 12/13/2016 Diagnosis at Time of Discharge Primary diagnoses: 1. Right breast invasive ductal carcinoma, ER/TX positive, HER-2 negative 2. Left breast deformity 3. Encounter for breast reconstruction Other chronic conditions: 1. Asthma 2. Seasonal allergies 3. Cervical degenerative disc disease 4. History of gestational diabetes 5. Former cigarette smoker Problems: Operation 1. Bilateral skin sparing mastectomies. 2. Right axillary sentinel lymph node biopsy. 3. Immediate bilateral breast reconstruction with abdominal based free tissue transfer. Brief History and Physical: The patient is a 46-year-old woman who had undergone 2 prior excisions for atypical ductal hyperplasia, and had a significant contour abnormality of the left medial breast inferiorly. She was then diagnosed with right breast invasive ductal carcinoma, ER/TX positive, HER-2 negative, with a 1 cm mass in the right breast 12:00 retroareolar region, 1 cm from the nipple. Because of her young age, 2 prior episodes of atypical ductal hyperplasia, and contour abnormality of the left breast, she desired to undergo bilateral mastectomy with immediate reconstruction. She was recommended to undergo abdominal tissue transfer. Consultants: Plastics Hospital Course: The patient was admitted and underwent the above-mentioned operations without complication. She experienced transient hypotension on her operative night which resolved without intervention by her first postsurgical day. On the first postsurgical day flaps were viable and well perfused, there was no apparent hematoma, she had an expected drop in hemoglobin and hematocrit to 9.2 and 27%. Blakely catheter was removed and oral analgesic was initiated. Hospitalization was continued an additional 2 days for monitoring of flaps, nursing support, and pain control. Pathology: FINAL DIAGNOSIS: 1.LEFT BREAST SIMPLE MASTECTOMY SPECIMEN: NEGATIVE FOR MALIGNANCY AND SIGNIFICANT ATYPIA. 2.RIGHT BREAST SIMPLE MASTECTOMY SPECIMEN: INFILTRATING DUCTAL CARCINOMA (SEE CAP CANCER SUMMARY BELOW). 3.RIGHT AXILLARY SENTINEL LYMPH NODE: SINGLE LYMPH NODE POSITIVE FOR METASTATIC BREAST CARCINOMA (SEE CAP CANCER SUMMARY BELOW). 4.RIGHT SUBCUTANEOUS TISSUE: FATTY TISSUE NEGATIVE FOR MALIGNANCY. Disposition: The patient was discharged to home on her third postsurgical day with viable flaps and patent drains on oral pain medication and intact surgical wounds. Follow-up Plan: She will follow-up with both Dr. Huang and Dr. Anaya in the office as scheduled preoperatively. ([benedryl]) 25 MG PO QPM (Reported) ([Mirena Iud]) VAGINAL (Reported) 20MCG/24H Acetaminophen (Acetaminophen) 325 Mg Tablet 500 MG PO Q4H PRN PRN For Fever ( Reported) Albuterol HFA (Proair HFA) 8.5 Gm Hfa.aer.ad 2 PUFFS INHALATION Q4H PRN PRN For Shortness of Breath (Reported) Alprazolam (Xanax) 0.5 Mg Tablet 0.5 MG PO TID PRN PRN For Anxiety (Reported) used only when flying Cetirizine HCl (Zyrtec) 10 Mg Capsule 10 MG PO HS (Reported) Doxycycline Hyclate (Doxycycline Hyclate) 100 Mg Capsule 100 MG PO PRN (Reported ) Fluticasone Propionate (Fluticasone Propionate Nasal) 16 Gm [place].susp 1 SPRAY NS DAILY (Reported) Guaifenesin (Mucinex) 600 Mg Tablet.er 600 MG PO DAILY PRN PRN For Congestion ( Reported) Multivits,Ca,Minerals/Iron/FA (Women's Daily Formula Caplet) 500-18-0.4 Tablet 1 EACH PO DAILY (Reported) Sertraline HCl (Sertraline) 100 Mg Tablet 100 MG PO DAILY (Reported) copies to: Lowell Anaya MD; Saskia Plaza MD; Kiko Valentine DO; Adalberto Swanson MD, Fred H PA-C December 22, 2016 15:08
[2017-01-03] MEDS ORDERED: CEPH-512 PO (09:07)
[2017-01-03] MEDS ORDERED: LORA0.5T PO (12:08)
[2017-01-03] MEDS ORDERED: ONDA8TAB7 PO (12:08)
[2017-01-03] MEDS ORDERED: GING550C3 PO (12:08)
[2017-01-03] MEDS ORDERED: PYR50 PO (12:08)
== END 2016-12-13 12:15 | disposition home or self-care (01) | DRG 581 ==
LOC: SAS 05:37 → UNDOADMIN 19:36 → PCC 19:36 → CCU 19:37 → UNDOADMIN 19:37 → PCC 19:37 → UNDOADMIN 12-11 07:15 → CCU 12-11 10:58 → PCC 12-11 10:58 → CCU 12-11 17:20 → PCC 12-11 17:29 → UNDODISIN 12-13 12:15
PROVIDERS: ADMIT Student in an Organized Health Care Education/Training Program; ATTEND Student in an Organized Health Care Education/Training Program
PROC: 0JB60ZX Excision of Chest Subcutaneous Tissue and Fascia, Open Approach, Diagnostic (ICD-10-PCS; 2016-12-10)
PROC: 07B50ZX Excision of Right Axillary Lymphatic, Open Approach, Diagnostic (ICD-10-PCS; principal; 2016-12-10 07:30)
PROC: 0HTV0ZZ Resection of Bilateral Breast, Open Approach (ICD-10-PCS; 2016-12-10 07:30)
PROC: 0KXK0Z6 Transfer Right Abdomen Muscle, Transverse Rectus Abdominis Myocutaneous Flap, Open Approach (ICD-10-PCS; 2016-12-11)
DX: C50.011 Malignant neoplasm of nipple and areola, right female breast (principal); N60.92 Unspecified benign mammary dysplasia of left breast; J45.909 Unspecified asthma, uncomplicated; Z79.51 Long term (current) use of inhaled steroids; Z17.1 Estrogen receptor negative status [ER-]; Z17.0 Estrogen receptor positive status [ER+]

== ENCOUNTER 2016-12-31 06:24 | Day surgery (SDC) | payer OTHER ==
[~2016-12-31] VITALS: Ht 162.6 cm; Wt 77.2 kg
[~2016-12-31 06:24] MED LIST changes: +CeFAZolin Inj 2 GM in IV Premix 1 EACH IV ONE; -EPINEPHrine 0.1 mg/mL 10 mL Syringe ONE; -IBUP200C PO; +SERT100T9 PO; -SERT20OR6 PO; -Sodium Bicarb (50 mEq) 8.4% 1 mEq/mL 50 mL Syringe ONE
[2016-12-31] MEDS ORDERED: Ondansetron 2 mg/mL 2 mL Inj ONE (06:25)
[2016-12-31] MEDS ORDERED: Dexamethasone 4 mg/mL Inj ONE (06:25)
[2016-12-31] MEDS ORDERED: fentaNYL-PF 50 mCg/mL 2 mL Inj ONE (06:25)
[2016-12-31] MEDS ORDERED: Propofol 10,000 mCg/mL 20 mL Inj ONE (06:25)
[2016-12-31] MEDS: Lactated Ringer's 1,000 ML IV SCH ×2 (06:30→08:51)
--- NOTE | 2016-12-31 06:37 | PCM.HPANE ---
Patient Data Surgeon Admitting Provider: Attending Provider:Erick Huang MD Primary Care Physician:Kiko Valentine DO Other Provider:Oanh Stinsoningham Anesthesia Reason for Visit Right Breast Cancer Ht/WT & BMI Height (Feet): 5 Height (Inches): 5.00 Weight (Kilograms): 76.38 Body Mass Index 28.00 Allergies Coded Allergies: No Known Allergies (Verified , 12/07/16) Past Anesthesia History Anesthesia History: Denies:: Abnormal Airway, Anesthesia Reactions, Difficult Intubation, Fam Anesthesia Reaction, Fam Malignant Hypertherm, Malignant Hyperthermia Diabetes History Hx Diabetes?: No MRSA MRSA: No Medications Reported Medications Ibuprofen 200 Mg [id number] Mg PO QID PRN For Pain Ref 0 12/31/16 [Mirena Iud] No Conflict Check Vaginal 20MCG/24H 12/07/16 [benedryl] No Conflict Check25 Mg PO QPM 12/07/16 Acetaminophen 325 Mg Zocygp752 Mg PO Q4H PRN For Fever Ref 0 06/10/16 Cetirizine HCl (Zyrtec)10 Mg Maiifhz66 Mg PO HS #30 CAPSULE Ref 0 06/08/16 Alprazolam (Xanax)0.5 Mg Tablet0.5 Mg PO TID PRN For Anxiety Ref 0 used only when flying 06/08/16 Multivits,Ca,Minerals/Iron/FA (Women's Daily Formula Caplet)500-18-0.4 Tablet1 Each PO DAILY 06/08/16 Guaifenesin (Mucinex)600 Mg Tablet.er600 Mg PO DAILY PRN For Congestion 06/08/16 Fluticasone Propionate (Fluticasone Propionate Nasal)16 Gm [place].susp1 [place] NS DAILY #16 GM Ref 0 06/08/16 Doxycycline Hyclate 100 Mg Uawdxjf355 Mg PO PRN 06/08/16 Albuterol HFA (Proair HFA)8.5 Gm Hfa.aer.ad2 Puffs INHALATION Q4H PRN For Shortness of Breath #1 INHALER 06/08/16 Discontinued Reported Medications Sertraline HCl (Sertraline)100 Mg Hmhkpp439 Mg PO DAILY 30 Days Ref 0 12/13/16 History History of ENT Problems?: No HEENT History: Positive for:: Sinus Problem (SEASONAL ALLERGIES) TMJ (wears nightguard) Denies:: Abnormal Airway Cataracts Difficult Intubation Dysphagia Hearing Problem Denture Type: None Teeth Condition: Within Normal Limits Hx of Heart Problems?: No Cardiovascular History: Denies:: AICD Atrial Fibrillation Cardiac Surgery Chest Pain Congestive Heart Failure Edema Heart Murmur Hypertension Irregular Heartbeat Pacemaker Hx of Respiratory Problem?: Yes Respiratory History: Positive for:: Asthma Denies:: COPD Chest Surgery Emphysema Oxygen Administration Pneumonia Tuberculosis Use of C-PAP Machine Hx Neurologic Problems?: Yes Neurological History: Positive for:: Headaches Denies:: CVA Dementia Multiple Sclerosis Parkinson's Disease Seizures Hx of GI Problems?: No Hx of Problems?: No Genitourinary History: Denies:: HX of Hemodialysis Kidney Stones Urinary Tract Infection HX of Peritoneal Dialysis: No Female Hx: Positive for:: Problems with Breasts? (right breast cancer- current admission problem- donna mast/reconst) Denies:: Currently Endometriosis Pelvic Inflammatory Skin History: Denies:: History Skin Disorders? (ACNE) Pressure Ulcers Hx Musculoskeletal Problems?: Yes Musculoskeletal History: Positive for:: Musculoskeletal Trauma (S/P RT SHOULDER RPR) Denies:: Back Injury Joint Replacement Systemic Lupus Hx of Psycho/Social Problems?: No Psycho Social History: Denies:: Anxiety Hx Depression Hx Surgeries?: Yes (LT SALPING-OOPH,B/L BREAST BX/LUMPECTOMIES,RT SHOULDER RPR, APPY,L4-5 LAMI) Hx Any Other Health Problems?: Yes Other History: Positive for:: Cancer (RT BREAST CA) Denies:: Endocrine Disease Hospitalization Thyroid Disease History Blood Transfusions: Denies:: Blood Transfusions Hx Diabetes: No Other Pertinent History: bilat mastectomies with reconstruction here on Hx Alcohol Use: NoHx Substance Use: No Smoking Status: Former Smoker Have You Smoked inLast 12 mo: No Stop/Bang S-Snoring: Do You Snore Loudly: No T-Tired: feel tired, fatigued: No O-Obsered: Observed not breath: No P-Blood Pressure: treated: No A- Age over 50: No N- Neck Large Circumference: No G- Gender Male: No BUDDY Risk Assessment: Low Risk, <3 Yes Risk Assessment Category Category 1A: Patient has history of documented sleep apnea, and HAS NOT received any narcotic, sedative or anesthesia administration during this stay. Category 1B: Patient has history of documented sleep apnea, and HAS received any narcotic , sedative or anesthesia administration during this stay Category 2: Patient has SUSPECTED Obstructive Sleep Apnea, and HAS received any narcotic , sedative or anesthesia administration during this stay. Category 3: Patient has SUSPECTED Obstructive Sleep Apnea and HAS NOT received narcotic, sedative or anesthesia administration during this stay. Category 4: Outpatient in Procedural Areas with known sleep apnea or who screen positive for High Risk via the STOP/BANG questionnaire. Exam Exam General Appearance: Alert, Oriented X3, Cooperative, No Acute Distress HEENT/AIRWAY: MP 2 Lungs: Clear to Auscultation, Normal Air Movement Heart: Exam Unremarkable, Regular Rate/Rhythm, No Murmurs/Rubs/Gallops Plan Impression Patient chart reviewed, patient interviewed and anesthestic plan with risks, benefits, and alternatives discussed, and informed consent obtained. NPO per Anesth. Guidelines: Yes ASA Physical Status: ASA2 Mod Systemic Disease Anesthetic Plan: GA Bene/Risks/Altern/Consents: Yes HP Complete Prior to Induction: Yes Bernard Miranda MD Dec 31, 2016 06:37
[2016-12-31 06:47] VITALS: BP 98/50; PULSE 76; RESP 12; O2SAT 98
[2016-12-31] MEDS ORDERED: IBUP200C PO (07:10)
[2016-12-31] MEDS ORDERED: HepLOK Flush 100 unit/mL 5 mL Inj IVFLUSH ONE ×2 (09:16)
[2016-12-31] MEDS ORDERED: Bupivacaine-MPF 0.5% W/EPI 30 mL Inj INFILTRATE ONE (09:16)
[2016-12-31] MEDS ORDERED: Lactated Ringer's 1,000 ML IV SCH (09:18)
[2016-12-31] MEDS ORDERED: Lactated Ringer's 500 ML IV PRN (09:18)
[2016-12-31] MEDS ORDERED: Atropine 0.4 mg/mL Inj IVPUSH PRN (09:20)
[2016-12-31] MEDS ORDERED: MetoCLOpramide 5 mg/mL 2 mL Inj IVPUSH PRN (09:20)
[2016-12-31] MEDS ORDERED: Phenylephrine 10,000 mCg/mL Inj IVPUSH PRN (09:20)
[2016-12-31] MEDS ORDERED: EPHEDrine Sulfate 50 mg/mL Inj IVPUSH PRN (09:20)
[2016-12-31] MEDS ORDERED: HYDROmorphone 1 mg/mL Inj IVPUSH PRN (09:20)
[2016-12-31] MEDS ORDERED: fentaNYL-PF 50 mCg/mL 2 mL Inj IVPUSH PRN (09:20)
[2016-12-31] MEDS ORDERED: Labetalol 5 mg/mL 4 mL Inj IV PRN (09:20)
[2016-12-31] MEDS ORDERED: Ondansetron 2 mg/mL 2 mL Inj IVPUSH PRN (09:20)
[2016-12-31] MEDS ORDERED: Dexamethasone 4 mg/mL Inj IVPUSH PRN (09:20)
[2016-12-31 09:35] VITALS: BP 111/52; PULSE 84; RESP 10; O2SAT 100
--- NOTE | 2016-12-31 09:38 | PCM.SURGOP ---
Surgical Operative Report Date of Service: Dec 31, 2016 Pre Operative Diagnosis Right breast cancer Post Operative Diagnosis Same Procedure: Tunneled left subclavian central venous catheter with power port, intraoperative fluoroscopy with interpretation Surgeon and Professor Of Musicology: Surgeon: Erick Huang MD Assistants: None Indication for Procedure 46-year-old woman who recently underwent bilateral mastectomy with right axillary sentinel lymph node biopsy, and immediate reconstruction with abdominal tissue transfer. Her final pathology demonstrated that her sentinel node was positive with a 6 mm metastasis without extranodal extension. She was recommended to receive adjuvant chemotherapy. After discussion of risks and benefits, she agreed to proceed with Port-A-Cath placement. Findings: The catheter tip was positioned at the cavoatrial junction, confirmed with fluoroscopy. Procedure Details After smooth induction of general anesthesia with an LMA, the patient was positioned in the supine position with both arms tucked. The patient was prepped and draped in wide sterile fashion. A procedural pause was performed according to the SCOAP checklist, and all were found to be in agreement. The patient was placed in Trendelenburg position. The left subclavian vein was accessed with a finder needle in a single pass, and the 0.035 inch wire was passed into the vena cava. It was confirmed with fluoroscopy. The low-profile port was used. A subcutaneous pocket was created on the left upper chest wall using electrocautery. The port reservoir was secured to the fascia with interrupted 3-0 Vicryl sutures. The catheter was connected to the tunneler, and tunneled under the subcutaneous tissue to the venipuncture site. The introducer sheath and dilator was passed over the wire under fluoroscopic guidance. The catheter was then passed through the tear-away sheath into the vena cava. The sheath was removed. The catheter was then pulled back under fluoroscopic guidance until the tip was positioned at the cavoatrial junction. The catheter was cut to size, and connected to the port reservoir. The port was accessed using a Flores needle, which aspirated and flushed easily. The port was then flushed with the final heparin flush, consisting of 100 units per mL, a total of 4 mL. A final fluoroscopic image confirmed that the port was in good position with no kinks, and there was no evidence of pneumothorax. The incision was closed with a running 4-0 Monocryl subcuticular stitch. Dermabond was applied to the skin as a dressing At the end of the case all needle and sponge counts were correct 2. The patient was awakened from anesthesia without difficulty, and taken to the recovery room in satisfactory condition, having tolerated the procedure well. Complications There were no periprocedural complications identified. Surgical Specimen Removed: No Specimen sent to Pathology: Not applicable Anesthetic Plan: GA Grafts, Implants: Implants-See Implant Record Output, Estimated Blood Loss: 5 Blood Administration during lynch: No Drains: None Catheters: None copies to: Saskia Plaza MD; Kiko Valentine Joshua D MD Dec 31, 2016 09:38
--- NOTE | 2016-12-31 09:39 | PCM.DISURG ---
Surgical Discharge Instruction Date of Service Dec 31, 2016 Dates of Hospitalization Date of Hospital Admission Providers Admitting Physician: Primary Care Physician: Kiko Valentine DO Attending Physician: Erick Huang MD Discharge Diagnosis Discharge Diagnosis Right breast cancer Post Operative diagnosis Same Diet Discharge Diet: No restrictions Activity Discharge Activity-General: No restrictions Dressing and Incisional Care Dressing Instructions: Dermabond will peel off gradually Hygiene: May shower Follow Up Plan Follow Up Plan With Dr. Valentine as directed Call your provider for: Fever (over 101.5), Discharge @ incision, pus discharge Erick Huang MD Dec 31, 2016 09:39
[2016-12-31 09:40] VITALS: BP 103/47; PULSE 75; RESP 12; O2SAT 100
[2016-12-31 09:46] VITALS: BP 102/50; PULSE 80; O2SAT 100
[2016-12-31 09:53] VITALS: BP 110/50; PULSE 78; RESP 18; O2SAT 100
--- NOTE | 2016-12-31 10:01 | PCM.ANEP1 ---
Post Anesthesia PACU Phase 1 Assessment Vital Signs Vital Signs Date Time Temp Pulse Resp B/P Pulse Ox O2 Delivery O2 Flow Rate FiO2 12/31/16 09:53 78 18 110/50 100 Room Air 12/31/16 09:46 80 102/50 100 Room Air 12/31/16 09:40 75 12 103/47 100 Simple Mask 10 12/31/16 09:35 36.3 84 10 111/52 100 Simple Mask 10 12/31/16 06:47 36.7 76 12 98/50 98 Room Air Anesthetic Administered: GA Level of Alertness: Awake, talking DEVINE's with Equal Strength: Yes Pain: No Nausea or Vomiting: No CV Function & Hydration Stable: Yes Airway Device: Oxygen Delivery: Simple Mask Lungs: Clear to Auscultation, Normal Air Movement PACU Phase 2 Assessment Complications: No Follow up Care: No Patient Instructions Provided: N/A Bernard Miranda MD Dec 31, 2016 10:01
[2016-12-31 10:28] VITALS: BP 104/48; PULSE 75; RESP 18; O2SAT 100
[2017-01-03] MEDS ORDERED: CEPH-512 PO (09:07)
[2017-01-03] MEDS ORDERED: PYR50 PO (12:08)
[2017-01-03] MEDS ORDERED: LORA0.5T PO (12:08)
[2017-01-03] MEDS ORDERED: GING550C3 PO (12:08)
[2017-01-03] MEDS ORDERED: ONDA8TAB7 PO (12:08)
== END 2016-12-31 23:59 | disposition home or self-care (01) ==
LOC: SAS 06:24
PROVIDERS: ATTEND Student in an Organized Health Care Education/Training Program
DX: C50.911 Malignant neoplasm of unspecified site of right female breast (principal); J45.909 Unspecified asthma, uncomplicated; M50.30 Other cervical disc degeneration, unspecified cervical region; F32.9 Major depressive disorder, single episode, unspecified; Z87.891 Personal history of nicotine dependence; Z97.5 Presence of (intrauterine) contraceptive device
CPT/HCPCS: 36561; 77001; C1788; J0690; J1100; J1642; J2250; J2405; J3010; J7120

== ENCOUNTER 2017-01-04 13:01 | Emergency (ER) | payer OTHER ==
[~2017-01-04] VITALS: Ht 165.1 cm; Wt 77.3 kg
[~2017-01-04 13:01] MED LIST changes: +CEPH-512 PO; -CeFAZolin Inj 2 GM in IV Premix 1 EACH IV ONE; +GING550C3 PO; +IBUP200C PO; +LORA0.5T PO; +ONDA8TAB7 PO; +PYR50 PO; -SERT100T9 PO
[2017-01-04 13:05] VITALS: BP 105/70; PULSE 79; RESP 18; O2SAT 99
--- NOTE | 2017-01-04 13:36 | ED.REPORT ---
HPI-General Illness Date of Service Jan 04, 2017 ED Provider: Richard Hernandez PA-C Radha is a 46-year-old female currently undergoing treatment for breast cancer , presenting to the emergency department for chief complaint of her face burning. Patient reports she got her first chemotherapy treatment yesterday, and now complains of itching in the head, face and chest, sore throat, lips tingling, nausea, absent mindedness, chills. She is status post reconstructive surgery for bilateral mastectomy, which she reports is progressing well though she is finishing a course of Keflex for a small area of infection. Early experiencing diarrhea thought to be secondary treatment with MiraLAX. Denies shortness of breath, cough, wheeze, sensation of her lips or tongue swelling, sensation of her throat closing. Denies fever, abdominal pain, urinary symptoms. Nursing Notes Stated Complaint: FACE BURNING Chief Complaint: General Complaint Nursing Notes Reviewed: Yes Allergies: Coded Allergies: No Known Allergies (Verified , 12/07/16) Scheduled ([benedryl]) 25 MG PO QPM Cephalexin (Keflex) 500 Mg Capsule 500 MG PO BID Cetirizine HCl (Zyrtec) 10 Mg Capsule 10 MG PO HS Doxycycline Hyclate (Doxycycline Hyclate) 100 Mg Capsule 100 MG PO PRN Fluticasone Propionate (Fluticasone Propionate Nasal) 16 Gm [place].susp 1 SPRAY NS DAILY Milana Root (Milana Root) 550 Mg Capsule 2 CAPSULE PO DAILY OTC Multivits,Ca,Minerals/Iron/FA (Women's Daily Formula Caplet) 500-18-0.4 Tablet 1 EACH PO DAILY Pyridoxine (Vitamin B-6) 50 Mg Tablet 300 MG PO DAILY OTC Scheduled PRN Acetaminophen (Acetaminophen) 325 Mg Tablet 500 MG PO Q4H PRN PRN For Fever Albuterol HFA (Proair HFA) 8.5 Gm Hfa.aer.ad 2 PUFFS INHALATION Q4H PRN PRN For Shortness of Breath Alprazolam (Xanax) 0.5 Mg Tablet 0.5 MG PO TID PRN PRN For Anxiety used only when flying Guaifenesin (Mucinex) 600 Mg Tablet.er 600 MG PO DAILY PRN PRN For Congestion Ibuprofen (Ibuprofen) 200 Mg Capsule 200 MG PO QID PRN PRN For Pain Lorazepam (Lorazepam) 0.5 Mg Tablet 0.5 MG PO Q6H PRN PRN For Anxiety Ondansetron ODT (Zofran ODT) 8 Mg Tablet 8 MG PO Q12H PRN PRN For Nausea Miscellaneous Medications ([Mirena Iud]) VAGINAL 20MCG/24H General Time Seen by MD: 13:13 Chief Complaint Allergic reaction Past Medical History Past Medical History Asthma, breast cancer Smoking History Former Smoker Review of Systems Negative unless stated otherwise in history of present illness Physical Exam General: Well appearing, well developed, well nourished, no acute distress. Head: Atraumatic, normocephalic. Eyes: No scleral icterus or injection. No discharge. Vision grossly intact. ENT: Voice clear, hearing grossly intact. Respiratory: Regular rate and rhythm. Breath sounds present, clear to auscultation and equal bilaterally. No respiratory distress. No increased work of breathing, speaks in complete sentences. Cardiovascular: Regular rate and rhythm, without murmur, gallop or rub. No pedal edema. Gastrointestinal: Abdomen flat and non-tender without guarding or rebound. Bowel sounds normoactive. Skin: Incisions on her abdomen and chest are clean and dry, appear to be healing well. Port on the left anterior chest shows no signs of infection. Neurological: Grossly nonfocal. Psychological: Alert and oriented. Speech appropriate, linear and logical. Patient struggles with word finding occasionally. Appears mildly anxious. Vital Signs Vital Signs Date Time Temp Pulse Resp B/P Pulse Ox O2 Delivery O2 Flow Rate FiO2 01/04/17 15:05 75 16 97/60 100 Room Air 01/04/17 15:04 75 16 97/60 100 Room Air 01/04/17 13:05 37.2 79 18 105/70 99 Room Air Normal Re-Eval/Medical Decision Med Decision/Clinical Course 46-year-old woman received a first dose of chemotherapy for breast cancer yesterday presents with a chief complaint of itching around her face neck and chest, feeling hot, sore throat, lip tingling. Denies symptoms of anaphylaxis. Physical examination reveals no indication of infection around her incisions, no indication of lip or tongue swelling. Clear and equal lung sounds. I am reassured that this is not anaphylaxis, and epinephrine is deferred. Discussed this case with Dr. Mata, who advised initially treating the patient with Benadryl to try to relieve her symptoms and consult and with the patient's oncologist. Dr. Valentine feels that in the absence of anaphylaxis is most appropriate to prescribe Benadryl one forward. Follow up as planned. Discussed this with the patient, answered all questions the best of my ability. Advised regarding primary care follow-up, provided emergency return precautions. Patient verbalized understanding of, and consent to, the plan. Discharge & Departure Primary Impression: Adverse reaction to antineoplastic drug Encounter type: initial encounter Qualified Code: T45.1X5A - Adverse effect of antineoplastic and immunosuppressive drugs, initial encounter Disposition: Home Discharge Condition All VS Reviewed: Yes Condition: Stable Additional Instructions: Evaluation for a possible drug reaction in the emergency department includes history, physical examination and consultation with her oncologist, all of which are reassuring that this is unlikely to be a dangerous reaction such as anaphylaxis. We believe you are stable and safe to be discharged to home. Dr. Valentine recommends Benadryl 25-50 mg up to 3 times a day to treat your symptoms. This will be sedating, so do not drink alcohol or drive when taking this medication. Continue taking your Zyrtec in the morning. Follow-up with Dr. Valentine as planned. Return to the emergency department for any new or worsening symptoms including wheezing, shortness of breath, lip or tongue swelling, a sensation of your throat closing. Referrals: Kiko Valentine DO (PCP) EDSupervising Provider for APC: aMnuel Mata MD copies to: Kiko Valentine Seth PA-C Jan 04, 2017 13:36
[2017-01-04] MEDS ORDERED: diphenhydrAMINE 50 mg Capsule PO ONE (13:45)
[2017-01-04] MEDS ORDERED: diphenhydrAMINE 25 mg Capsule PO ONE (14:10)
[2017-01-04 15:04] VITALS: BP 97/60; PULSE 75; RESP 16; O2SAT 100
[2017-01-04 15:05] VITALS: BP 97/60; PULSE 75; RESP 16; O2SAT 100
== END 2017-01-04 15:05 | disposition home or self-care (01) ==
LOC: SED 13:01
DX: R20.8 Other disturbances of skin sensation (principal); L29.9 Pruritus, unspecified; T45.1X5A Adverse effect of antineoplastic and immunosuppressive drugs, initial encounter; X58.XXXA Exposure to other specified factors, initial encounter; Y93.9 Activity, unspecified; Y92.9 Unspecified place or not applicable; Y99.8 Other external cause status; Z87.891 Personal history of nicotine dependence; Z79.899 Other long term (current) drug therapy; Z85.3 Personal history of malignant neoplasm of breast